=== PATIENT | female | born 1975 | race Caucasian/White ===

== ENCOUNTER 2019-01-30 10:54 | Outpatient (CLI) | payer OTHER | END 2019-01-30 10:55 | disposition home or self-care (01) | LOC: SC 10:54 | PROVIDERS: ATTEND Internal Medicine Pulmonary Disease | DX: R06.83 Snoring (principal); R06.81 Apnea, not elsewhere classified; G47.8 Other sleep disorders; G47.10 Hypersomnia, unspecified; E66.01 Morbid (severe) obesity due to excess calories; Z68.43 Body mass index [BMI] 50.0-59.9, adult; G47.33 Obstructive sleep apnea (adult) (pediatric) | CPT/HCPCS: 95811; 99203; 99212 ==

== ENCOUNTER 2019-01-30 20:38 | Outpatient (CLI) | payer OTHER | END 2019-01-30 20:39 | disposition home or self-care (01) | LOC: SC 20:38 | PROVIDERS: ATTEND Internal Medicine Pulmonary Disease | DX: G47.33 Obstructive sleep apnea (adult) (pediatric) (principal) ==

== ENCOUNTER 2019-03-29 16:14 | Outpatient (CLI) | payer OTHER | END 2019-03-29 16:15 | disposition home or self-care (01) | LOC: SC 16:14 | PROVIDERS: ATTEND Nurse Practitioner Family | DX: G47.33 Obstructive sleep apnea (adult) (pediatric) (principal) | CPT/HCPCS: 99212; 99214 ==

== ENCOUNTER 2019-06-27 15:35 | Outpatient (CLI) | payer OTHER ==
[2019-06-27 16:54] VITALS: BP 128/80
--- NOTE | 2019-06-27 16:54 | SLEEP CARE CONSULTATION ---
Information from patient questionnaire entered by Kyra Mednez. I have reviewed and concur with the information entered by Kyra Mendez. This document represents the service I personally performed and the decisions made by me, Ioana Zamorano, RN, MSN, CHEMICAL RESEARCH ENGINEER. History of Present Illness Previous diagnosis: Very Severe, Obstructive Sleep Apnea-Hypopnea Syndrome AHI: 77.2 Reason for CPAP/BiPAP follow up: first compliance Equipment type: CPAP Equipment obtained from: [employer] Mask style: Full face (Air Touch) Mask brand: Resmed Backup mask available: No Last cushion change: a month ago CPAP Compliance Data - Data Reviewed with Patient Average duration of nightly device use: 6.8 Compliance rate %: 93.3 Current pressure setting (cmH2O): 15 Humidity settin Heated hose settin Average residual AHI: 3.1 Average large leak: 1hr 34 mins Subjective Missed days of use due to: reports: other (due to frustration of mask leaks into her eyes due to discomfort to her / contacts. ) Patient concerns: reports: air blowing in eyes (the last few weeks since last mask cushion but when tried old cusion no change. Also adjusted mask headgear. ), mask leak noise, dry mouth, nose, throat (most days - dry mouth). denies: aerophagia, mask discomfort, condensation in mask/hose (uses a hose cover as does not like heat of heated hose. ), nasal congestion, epistaxis Observed to snore while using device: No Current pressure setting perceived as: comfortable On therapy, patient: reports: sleeping better, awakening more refreshed, being more awake and alert during the day, more rested overall. denies: drowsiness while driving Initial [place] Sleepiness Scale score: 9 Current [place] Sleepiness Scale score: 3 Allergies and Home Medications Known drug allergies: No Home medication list reviewed: Yes Allergy and home medication list: Micardis 80mg tab one daily Vagifem 10mcg tab one daily Citalopram 40mg tab one daily Ibuprofen 200mg tab as needed Acetaminophen 325mg tab as needed Physical Exam Blood Pressure: 128/80 Cuff size: long Heart Rate: 81 O2 Saturation: 98 Height: 5 ft 1 in Weight (kg): 275 lb 9.6 oz Body Mass Index: 52.0 BMI Classification: Class 3 Impression and Plan 1. Obstructive Sleep Apnea-Hypopnea Syndrome, very severe, with good treatment compliance and good apnea control. On CPAP therapy, the patient has better sleep quality and is more rested overall. For mask leaks, I showed her a CPAP pillow that can be bought on line or other style for about $60. The pillow helps reduce mask leaks for patients like Stefanie Carmona who prefer to sleep on their side. I also showed her some sample masks as current mask seems to ride too high on nose causing mask leaks and discomfort to eyes and her contacts drying out. I fitted her with a medium Apple View mask which seemed more comfortable. I wrote an order so mask cushion can be replaced. She was informed that she will need to notify [employer] if she wants to use this mask. Also it comes with magnets instead of clips but I did not have sample. She can request in future. For her oral dryness, I showed her how her humidity could be raised and lowered only if condensation. Patient's apnea severity and rationale for treatment to reduce apnea, improve sleep quality and reduce cardiovascular and cerebrovascular events was reviewed. I also reviewed the benefit of consistent device use of CPAP for hypertension, depression/anxiety. * Continue CPAP pressure at 15 cmH2O * Try new mask * Adjust humdity * Consider a CPAP pillow. * Notify me if snoring with mask or feeling that the pressure is too much or too little * Attempt to lose weight * Return for follow up in 3 months , or sooner if concerns arise I spent 100% of this 30 minute visit face to face with the patient with greater than 50% of this was spent time counseling the patient and coordination of care.
== END 2019-06-27 15:36 | disposition home or self-care (01) ==
LOC: SC 15:35
PROVIDERS: ATTEND Nurse Practitioner Family
DX: G47.33 Obstructive sleep apnea (adult) (pediatric) (principal)
CPT/HCPCS: 99212; 99214

== ENCOUNTER 2019-09-27 10:05 | Outpatient (CLI) | payer OTHER ==
--- NOTE | 2019-09-27 11:04 | SLEEP CARE CONSULTATION ---
Information from patient questionnaire entered by Kyra Mendez. I have reviewed and concur with the information entered by Kyra Mendez. This document represents the service I personally performed and the decisions made by me, Ioana Zamorano, RN, MSN, IT QUALITY ANALYST. History of Present Illness Previous diagnosis: Very Severe, Obstructive Sleep Apnea-Hypopnea Syndrome AHI: 77.2 Reason for follow up: three month Equipment type: CPAP Equipment obtained from: [employer] Mask style: Full face (Air Touch) Mask brand: Resmed Backup mask available: No (Keep current mask when replaced for spare) Last cushion change: 6 weeks ago or so HPI additional information: She did not need a CPAP pillow. Changing her mask cushions reduced mask leaks sufficiently. CPAP Compliance Data - Data Reviewed with Patient Average duration of nightly device use: 6.75 Compliance rate %: 78.9 (90 days) Current pressure setting (cmH2O): 15 Humidity settin Heated hose settin Average residual AHI: 2.7 Average large leak: 1 hr 21 min 35 sec Subjective Patient concerns: reports: mask leak noise (she wakes about 2 times a night. ), dry mouth, nose, throat. denies: aerophagia, mask discomfort, air blowing in eyes, condensation in mask/hose, nasal congestion, epistaxis Observed to snore while using device: No (spouse deployed) Current pressure setting perceived as: too high On therapy, patient: reports: sleeping better (waking less often), awakening more refreshed, being more awake and alert during the day, more rested overall. denies: drowsiness while driving Initial [place] Sleepiness Scale score: 9 Current [place] Sleepiness Scale score: 0 Allergies and Home Medications Known drug allergies: No Home medication list reviewed: Yes Allergy and home medication list: Micardis 80mg daily Citalopran 40mg daily Vagifem 10mcg 5 days a week Tylenol 325mg prn omeprazole daily Review of Systems Review of systems same as previous: No (Had bariatric surgery and going well in weight loss/ adjusting to diet ) Physical Exam Blood Pressure: 118/80 Cuff size: long Heart Rate: 68 O2 Saturation: 98 Height: 5 ft 1 in Weight: 238 lb Body Mass Index: 44.9 BMI Classification: Obesity Class 3 Impression and Plan 1. Obstructive Sleep Apnea-Hypopnea Syndrome, very severe, with good treatment compliance and good apnea control. On CPAP therapy, the patient has better sleep quality and is more rested overall. The mask leaks have continued significantly which could contributing to mouth dryness. She is advised again to consider a CPAP pillow as it seems her mask leaks are noted more when she sleeps on her side. She is also to continue increasing the humidity. Control of her mask leaks should reduce her running out of reservoir water. She has lost significant weight from Bariatric surgery and is now complaining the air seems too much and will take off mask if wakes with too high of pressure and notes there is more then 4 hours. Thus I will change her CPAP pressure to [id number] for comfort and to adjust for future weight loss. I explained how her weight loss will reduce her apnea risk as well as her CPAP pressure. Symptoms to report for further adjustment discussed. She is also advised to use CPAP with all sleepnot just 4 hours for compliance with rationale discussed to obtain maximum benefit of treatment. If she cannot use with all sleep, she is to contact me. Patient's apnea severity and rationale for treatment to reduce apnea, improve sleep quality and reduce cardiovascular and cerebrovascular events was reviewed. I also reviewed the benefit of consistent device use of CPAP for hypertension, depression/anxiety * * Change CPAP pressure to 8-13 cmH2O * adjsut humdity * Consider CPAP pillow * use CPAP with all sleep. * Notify me if snoring with mask or feeling that the pressure is too much or too little * Attempt to lose weight * Return for follow up in 6 months , or sooner if concerns arise . I spent 100% of this 32 minute visit face to face with the patient with greater than 50% of this was spent time counseling the patient and coordination of care.
[2019-09-27 11:05] VITALS: BP 118/80
== END 2019-09-27 10:06 | disposition home or self-care (01) ==
LOC: SC 10:05
PROVIDERS: ATTEND Nurse Practitioner Family
DX: G47.33 Obstructive sleep apnea (adult) (pediatric) (principal); E66.9 Obesity, unspecified; Z68.41 Body mass index [BMI] 40.0-44.9, adult
CPT/HCPCS: 99212; 99214

== ENCOUNTER 2023-08-09 20:46 | Outpatient (CLI) | payer OTHER ==
--- NOTE | 2023-08-10 14:31 | XRAY Report ---
PROCEDURE: Chest 2 View X-Ray INDICATIONS: ASPIRATION PNEUMONIA TECHNIQUE: 2 views of the chest were acquired. COMPARISON: None. FINDINGS: Surgical changes and devices: None. Lungs and pleura: No pleural effusions or pneumothorax. Lungs are clear. Mediastinum: Mediastinal contours appear normal. Heart size is normal. Bones and chest wall: No suspicious bony lesions. Overlying soft tissues appear unremarkable. IMPRESSION: No acute cardiopulmonary process. Reviewed by: Tonya Polanco MD on 08/10/2023 2:30 PM PDT Approved by: Tonya Polanco MD on 08/10/2023 2:30 PM PDT Station ID: [id number]
== END 2023-08-09 20:47 | disposition home or self-care (01) ==
LOC: DI 20:46
PROVIDERS: ATTEND Emergency Medicine
DX: J69.0 Pneumonitis due to inhalation of food and vomit (principal)

== ENCOUNTER 2023-10-21 14:46 | Outpatient (CLI) | payer OTHER ==
[2023-10-21 15:56] VITALS: BP 140/90; O2SAT 97
--- NOTE | 2023-10-21 16:48 | SLEEP CARE CONSULTATION ---
Information from patient questionnaire entered by Марина Mendoza. I have reviewed and concur with the information entered by Марина Mendoza. This document represents the service I personally performed and the decisions made by me, Dinora Kwong ARNP. History of Present Illness Service Date and Time: 10/21/2023 1446 Reason for Visit: New patient, Previously diagnosed sleep apnea Accompanied by: Spouse (Conrad) Chief Complaint: reports: Other (UPDATE SUPPLIES) Date of Onset: CURRENT Usual bedtime: 8-9 Time it takes to fall asleep: 15-20MIN Snores at night: No Observed to quit breathing while asleep: No Sleeps alone due to snoring: No Number of times waking at night: 1-2 Reasons for waking at night: reports: Bathroom, Other (DOGS, GERD ). denies: Choking, Gasping for air Toss, Turn, or Twitch while sleeping: Yes Recalls having dreams: Yes Usually gets out of bed at: 7AM Feels refreshed in the morning: Yes Morning headache: No Sleepy or fatigued during the day: No Ever fallen asleep while driving: No Takes day naps: No Dreams during day naps: No Prior sleep studies: Yes Additional HPI information: I had the pleasure of seeing FRANCISCO FALL today regarding the possibility of her having a sleep disorder. She was last seen here in 2019 and had a sleep study dated 01/30/2019 showing very severe obstructive sleep apnea with an AHI of 77.2. She returns today and her current complaints are needing to update supplies to use her CPAP post gastric bypass surgery scheduled on 10/29/23. She says she has to have her CPAP and does not have enough supplies to use her machine. She used to use an AirTouch F20 mask. - Parasomnia Symptoms Ever been unable to move upon waking from sleep: No Walks in sleep: No Talks in sleep: No Ever acted out dreams in sleep: No Ever felt weak in the knees when startled or emotional: No Bothered by creepy, crawly, restless sensations in legs: No Problems with memory or concentration: No CPAP Compliance Data Compliance data discussion: She has a Dreamstation that is on the recall and she stopped using it. She was using [employer] but was transferred to [facility]. She says she was using a ResMed AirTouch F20. She has not been using her CPAP for 3-4 years. She also lost 70 pounds after gastric sleeve surgery and has seen improvement of her symptoms. 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 Patient is and lives in [place]. Have you smoked in the past 12 months: No Alcohol use: No Caffeine use: No Family History Family history of sleep disordered breathing: No Allergies and Home Medications Known drug allergies: No Drug allergies reviewed: Yes Home medication list reviewed: Yes Allergy and home medication list: Home Medications Medication Instructions Recorded Confirmed Last Taken Type Escitalopram [Lexapro] See Rx Instructions .ROUTE .COMPLEX 10/21/23 10/21/23 Unknown History Pantoprazole [Protonix] See Rx Instructions .ROUTE .COMPLEX 10/21/23 10/21/23 Unknown History Telmisartan/Hydrochlorothiazid See Rx Instructions .ROUTE .COMPLEX 10/21/23 10/21/23 Unknown History [Micardis Hct 40-12.5 mg Tablet] Review of Systems Weight loss over past 5 years: 70 Cardiovascular: reports: high blood pressure Gastrointestinal: reports: nausea, vomitting Psychiatric: reports: anxiety, depression Ear/Nose/Throat: reports: wisdom teeth removed. denies: tonsillectomy Physical Exam Vital signs obtained and entered by: МАРИНА Dewitt MA Blood Pressure: 140/90 (RIGHT ARM) Cuff size: regular Heart Rate: 71 O2 Saturation: 97 Height: 5 ft 1 in Weight: 217 lb 3.2 oz Body Mass Index: 41.0 BMI Classification: Morbidly Obese Neck circumference: 14.5 Mouth and throat: narrow oropharynx Soft palate: long Hard palate: normal Uvula: normal Tongue: normal in size Tonsils: 1+ Neck: normal w/o lymphadenopathy or thyromegaly Heart: regular rate and rhythm Lungs: clear bilaterally Impression and Plan 1. Suspected Obstructive Sleep Apnea-Hypopnea Syndrome, as previously diagnosed. She has lost about 70 pounds with gastric sleeve surgery. She is preparing for gastric bypass surgery. She has to use a CPAP postop the bariatric surgery. She states she has seen a lot of improvement of her symptoms since her weight loss. She just needs some more supplies to use the CPAP. I will update her supply prescription pre her request. We discussed that she does have a recalled device and there is not time enough for us to replace it before she has her surgery. She voiced understanding and knows the risk for using it because it has not yet been replaced or refurbished. She denies seeing any black debris or having any upper respiratory symptoms when previously using her device. Because of her significant weight loss I would like to get a new baseline for her sleep apnea. I recommend proceeding to polysomnography to confirm the diagnosis and to assess severity. I obtained agreement to proceed. The pathophysiology of obstructive sleep apnea-hypopnea syndrome was discussed with the patient and health risks of cardiovascular and cerebrovascular disease if not treated. Risks of drowsy driving discussed in detail and patient advised to avoid long distance driving and to gizzard puller at the first sign of drowsiness. Patient agreed to plan. * Schedule polysomnography to verify diagnosis and severity since 70 lb weight loss. * Update supply prescription for her to be able to use the CPAP after surgery * Provided her with ResMed AirFit F20, medium cushion mask to use with her CPAP * Avoid long distance driving or driving when feeling sleepy. * Avoid alcohol, sedative and muscle relaxant around bedtime. * Attempt to lose weight. * Review instructions provided by trained office staff on how to prepare for the sleep study. * Return for follow-up after sleep study completed. Mask provided: Yes Counseling Topics: Weight loss health impact Prescriptions: Device supplies Plan: PSG to verify diagnosis after weight loss Visit Type: In Office Time Spent with Patient (minutes): 37 Provider Statement: I spent 100% of the Face to Face Visit with the patient with greater than 50% spent counseling the patient and coordination of care.
== END 2023-10-21 14:47 | disposition home or self-care (01) ==
LOC: SC 14:46
PROVIDERS: ATTEND Nurse Practitioner Family
DX: G47.33 Obstructive sleep apnea (adult) (pediatric) (principal); I10 Essential (primary) hypertension; F32.A Depression, unspecified; E66.01 Morbid (severe) obesity due to excess calories; Z68.41 Body mass index [BMI] 40.0-44.9, adult
CPT/HCPCS: 99203; 99212

== ENCOUNTER 2023-11-09 20:29 | Outpatient (CLI) | payer OTHER | END 2023-11-09 20:30 | disposition home or self-care (01) | LOC: SC 20:29 | PROVIDERS: ATTEND Nurse Practitioner Family | DX: G47.33 Obstructive sleep apnea (adult) (pediatric) (principal); G47.61 Periodic limb movement disorder; I47.10 Supraventricular tachycardia, unspecified | CPT/HCPCS: 95810 ==